=== PATIENT | female | born 1965 | race Caucasian/White ===

== ENCOUNTER → 2017-08-08 | Outpatient (CLI) | payer OTHER ==
--- NOTE | 2017-08-08 23:18 | MR ---
EXAMINATION TYPE: MR knee RT wo con DATE OF EXAM: 08/08/2017 COMPARISON: NONE HISTORY: Rt knee pain x 2 mos, no trauma TECHNIQUE: Multiplanar, multisequence imaging of the right knee is performed without IV contrast. FINDINGS: There is a moderate knee joint effusion. The anterior and posterior cruciate ligaments are intact. Co llateral ligaments are intact. There is increased signal in the free margin of the posterior horn lat eral meniscus. There is small area of increased signal in the free margin of the posterior horn of the medial menisc us. I see no fracture. There is no evidence of bony destructive process. There is mild spurring of th e femoral and tibial condyles. There is no significant joint space narrowing. IMPRESSION: No evidence of ligamentous tear. There are is moderate joint effusion. There are small tears of the f ree margin of the posterior horn of the medial meniscus and the lateral meniscus.
== END | disposition home or self-care (01) ==
LOC: RADMRIMAIN 17:23
PROVIDERS: ATTEND Orthopaedic Surgery
DX: S83.241A Other tear of medial meniscus, current injury, right knee, initial encounter (principal); S83.281A Other tear of lateral meniscus, current injury, right knee, initial encounter; M17.11 Unilateral primary osteoarthritis, right knee